=== PATIENT | female | born 1960 | race Asian ===

== ENCOUNTER 2021-12-30 11:27 | Observation (INO) ==
[2021-12-30 12:00] LABS: Mucus,Urine Occasional /LPF (Occasional); RBC,Urine <1 /HPF (0-4); Squamous Epithelial Cell,Urine Occasional /HPF (0-10)
[2021-12-30 12:01] LABS: Bilirubin,Urine Negative (Negative); Blood, Urine Negative (Negative); Glucose,Urine (UA) Negative (Negative); Ketones,Urine Negative (Negative); Nitrite,Urine Negative (Negative); Protein,Urine Negative; Urine Appearance Clear (Clear); Urine Color Yellow (Yellow); Urine Urobilinogen 0.2 EU/DL (<2.0); Urine pH 5.5 (4.5-8.0)
[2021-12-30 12:10] LABS: Basophils # 0.1 10*3/uL (0.0-0.2); Basophils % 0.6 % (0.0-0.8); Eosinophils # 0.1 10*3/uL (0.0-0.87); Eosinophils % 0.7 % (0.00-10.9); Hematocrit 22.7 VOL% (35.7-47.0); Hemoglobin 6.9 GM/DL (12.0-16.0); Immature Granulocytes % 1.4 %; Immature Granulocytes Absolute 0.14 #; Lymphocytes # 2.8 10*3/uL (1.4-4.0); Lymphocytes % 28.8 % (21.3-54.2); Mean Corpuscular HGB Conc 30.4 GM/DL (32-36); Mean Corpuscular Volume 85.3 FL (87-102); Mean Platelet Volume 8.9 FL (9.6-12.0); Monocytes % 7.2 % (1.7-12.7); NRBC # 0.14 10*3/uL; Neutrophils % 61.3 % (38.7-73.9); Platelet Count 419 T/CUMM (130-400); Red Blood Count 2.66 MC/CUMM (3.8-5.5); Red Cell Distribution Width 15.4 % (9.3-17.3); White Blood Count 9.8 T/CUMM (4-12)
[2021-12-30] MEDS ORDERED: GLUCAGON 1 MG VIAL IM PRN (13:59)
[2021-12-30] MEDS ORDERED: ONDANSETRON 4 MG/2 ML VIAL IV PRN (13:59)
[2021-12-30] MEDS ORDERED: ACETAMINOPHEN 325 MG TABLET PO PRN (13:59)
[2021-12-30] MEDS ORDERED: SODIUM CHLORIDE 0.9% 1,000 ML IV PRN (14:01)
[2021-12-30] MEDS ORDERED: DEXTROSE 10% 250 ML BAG IV PRN (14:07)
[2021-12-30 14:54] LABS: % Iron Saturation 7.1 % (18-50); Ferritin 25.8 ng/mL (8-252)
[2021-12-30 15:01] LABS: Alanine Aminotransferase 29 U/L (13-56); Albumin 3.5 G/DL (3.4-5.0); Alkaline Phosphatase 99 U/L (45-117); Aspartate Amino Transferase 22 U/L (0-37); Bilirubin,Total < 0.39 MG/DL (0.20-1.00); Blood Urea Nitrogen 9 MG/DL (7-18); Calcium 8.7 MG/DL (8.5-10.1); Carbon Dioxide 27 MMOL/L (21-32); Estimated Glom Filtration Rate 93 ML/MIN; Glucose 139 MG/DL (74-106); Osmolality,Calculated 270.1 MOS/KG (273-304); Sodium 135 MMOL/L (136-145); Total Protein 7.6 G/DL (6.4-8.2)
[2021-12-30 17:11] LABS: PT Patient Result 10.8 SECS (10.5-12.0); Partial Thromboplastin Time 24.2 SECS (23.8-32.1)
[2021-12-31 05:19] LABS: Basophils # 0.1 10*3/uL (0.0-0.2); Basophils % 0.8 % (0.0-0.8); Eosinophils # 0.1 10*3/uL (0.0-0.87); Eosinophils % 1.2 % (0.00-10.9); Hematocrit 30.9 VOL% (35.7-47.0); Immature Granulocytes % 0.9 %; Immature Granulocytes Absolute 0.09 #; Lymphocytes % 31.5 % (21.3-54.2); Mean Corpuscular HGB Conc 30.7 GM/DL (32-36); Mean Corpuscular Volume 88.3 FL (87-102); Mean Platelet Volume 9.4 FL (9.6-12.0); Monocytes % 7.4 % (1.7-12.7); NRBC # 0.06 10*3/uL; Neutrophils % 58.2 % (38.7-73.9); Platelet Count 401 T/CUMM (130-400); Red Cell Distribution Width 14.9 % (9.3-17.3); White Blood Count 9.5 T/CUMM (4-12)
[2021-12-31 05:24] LABS: Hemoglobin 9.5 GM/DL (12.0-16.0)
[2021-12-31 05:43] LABS: Calcium 8.3 MG/DL (8.5-10.1); Osmolality,Calculated 279.4 MOS/KG (273-304); Potassium 3.8 MMOL/L (3.5-5.1)
[2021-12-31 13:02] VITALS: BP 135/80
== END 2021-12-31 13:04 | disposition home or self-care (01) ==
LOC: N.ED 11:27 → N.TELES 11:27
PROVIDERS: ADMIT Internal Medicine; ATTEND Internal Medicine